=== PATIENT | male | born 1965 | race Caucasian/White ===

== ENCOUNTER 2018-01-09 14:52 | Emergency (ER) | payer OTHER ==
[2018-01-09 15:05] VITALS: RESP 16; TEMP 97.7
--- NOTE | 2018-01-09 15:13 | EDPHY ---
H & P Stated Complaint: Positional vertigo ~5days;started vomiting this morning Time Seen by Provider: 01/09/18 15:12 - Personal History Current Tetanus Diphtheria and Acellular Pertussis (TDAP): Yes - Medical/Surgical History Hx Asthma: No Hx Chronic Respiratory Disease: No Hx Diabetes: No Hx Cardiac Disease: No Hx Renal Disease: No Hx Cirrhosis: No Hx Alcoholism: No Hx HIV/AIDS: No Hx Splenectomy or Spleen Trauma: No Other PMH: achilles tendon rupture - Social History Smoking Status: Never smoked Constitutional: Initial Vital Signs Temperature (C) 36.5 C 01/09/18 14:59 Heart Rate 52 L 01/09/18 14:59 Respiratory Rate 16 01/09/18 14:59 Blood Pressure 107/75 01/09/18 14:59 O2 Sat (%) 100 01/09/18 14:59 O2 Delivery Mode Room Air O2 (L/minute) 2 Allergies/Adverse Reactions: No Known Allergies Allergy (Verified 01/09/18 14:59) Home Medications: Medication Instructions Recorded NK [No Known Home Meds] 02/20/16 Medical Decision Making - Diagnostics Imaging Results: Imaging Impressions Brain MRI 01/09/18 15:38 Impression: Normal MRI of the brain without contrast. Findings and recommendations discussed with Emergency Department physician, Davon Helton MD at 1635 hour, 01/09/2018. Final report concurs with initial preliminary interpretation. Imaging: Discussed imaging studies w/ call center agent Radiologist ED Course/Re-evaluation: CHIEF COMPLAINT: Vertigo HISTORY OF PRESENT ILLNESS: Healthy 52 y/o male presents with vertigo onset this morning. For the past 5 days, he has had 1-2 episodes of lightheadedness per day, each lasting about 30 seconds. Today, he woke feeling dizzy and lightheaded. He sat down and immediately developed a room-spinning sensation. He vomited after this, and continues to vomit and feel nauseous. Sitting still with eyes closed relieves his symptoms somewhat. He spoke with his primary care provider, who recommended he present to the emergency department for evaluation. He had not had similar symptoms in the past. No headache, numbness or weakness in his extremities, confusion, difficulty speaking, or other associated symptoms. He denies recent trauma or illness. REVIEW OF SYSTEMS: A 10 point review of systems was performed and is negative with the exception of the elements mentioned in the history of present illness. PHYSICAL EXAM: HR, BP, O2 Sat, RR. Temp noted General Appearance: Alert, well hydrated, appropriate, and non-toxic appearing. Head: Atraumatic without scalp tenderness or obvious injury Eyes: Pupils equal, round, reactive to light and accommodation, EOMI, no trauma , no injection. Ears: Clear bilaterally, no perforation, normal landmarks Nose: Atraumatic, no rhinorrhea, clear. Throat: There is no erythema or exudates, no lesions, normal tonsils, mucus membranes moist. Neck: Supple, 2+ carotid upstroke, nontender, no lymphadenopathy. Respiratory: No retractions, no distress, no wheezes, and no accessory muscle use. Lungs are clear to auscultation bilaterally. Cardiovascular: Regular rate and rhythm, no murmurs, rubs, or gallops. Bilateral carotid, radial, dorsalis pedis, and posterior tibial pulses intact. Good capillary refill all extremities. Gastrointestinal: Abdomen is soft, nontender, non-distended, no masses, no rebound, no guarding, no peritoneal signs. Musculoskeletal: Normal active ROM of all extremities, atraumatic. Neurological: Alert, appropriate, and interactive. The patient has normal DTRs and non-focal cranial nerves, motor, sensory, and cerebellar exam. Skin: No rashes, good turgor, no nodules on palpation. Past medical history: Achilles tendon rupture Past surgical history: Noncontributory Family history: Noncontributory Social history: . at bedside. Lives in [place]. DIFFERENTIAL DIAGNOSIS: The differential diagnosis for the patient's dizziness included but was not limited to peripheral and central causes of vertigo, orthostatic causes including dehydration, cardiogenic and neurogenic causes, and blood loss. MEDICAL DECISION MAKIN52 y/o male presents with vertigo onset this morning. He had several prodromal episodes of lightheadedness in the last week. The patient has severe nausea with room spinning. His symptoms extinguish when he is supine and closes his eyes. Symptoms consistent with BPPV rather than central processes. Plan for MRI to r/o acute processes. Plan to administer 25mg IV Benadryl, 1mg IV Ativan, 4mg IV Zofran for symptom relief. 16:30 Patient is feeling much better following medication administration. 16:[address] An, radiologist. MRI brain negative for acute processes. 17:00 Reassessed patient. He continues to feel well. Plan to discharge home in good condition. He will take meclizine for symptom relief and follow up with ENT for further evaluation. He is comfortable with this plan. - Data Points Medications Given: Discontinued Medications Diphenhydramine HCl (Benadryl Injection) 50 mg IVP EDNOW ONE Stop: 01/09/18 15:40 Last Admin: 01/09/18 15:41 Dose: Not Given Diphenhydramine HCl (Benadryl Injection) 25 mg IVP EDNOW ONE Stop: 01/09/18 15:39 Last Admin: 01/09/18 15:41 Dose: 25 mg Lorazepam (Ativan Injection) 1 mg IVP EDNOW ONE Stop: 01/09/18 15:39 Last Admin: 01/09/18 15:40 Dose: 1 mg Lorazepam (Ativan Injection) 1 mg IVP EDNOW ONE Stop: 01/09/18 15:39 Last Admin: 01/09/18 15:40 Dose: Not Given Ondansetron HCl (Zofran) 4 mg IVP EDNOW ONE Stop: 01/09/18 15:39 Last Admin: 01/09/18 15:47 Dose: 4 mg Departure - Departure Disposition: Home, Routine, Self-Care Clinical Impression: BPPV (benign paroxysmal positional vertigo) Qualifiers: Laterality: unspecified laterality Qualified Code(s): H81.10 - Benign paroxysmal vertigo, unspecified ear Condition: Good Instructions: Benign Paroxysmal Positional Vertigo (ED) Additional Instructions: 1. Follow up with an Ear, Nose, and Throat provider for further evaluation of your vertigo. 2. Take Meclizine, available over the counter, as needed for recurrent symptoms. Stay well hydrated. 3. Return to the emergency department immediately for headache, numbness, weakness, severe vertigo, neck pain, inability to tolerate fluids by mouth or other worsening of condition. Referrals: Fred Guillen MD [Primary Care Provider] - As per Instructions Argentina Nicolas PA [Physician Telecom Sales Consultant] - As per Instructions Report Scribed for: Davon Helton Report Scribed by: Deyanira Correa Date of Report: 01/09/18 Time of Report: 17:00
[2018-01-09] MEDS ORDERED: LORazepam 2 MG/ML INJ ONE (15:37)
[2018-01-09] MEDS ORDERED: ONDANSETRON 4 MG/2 ML VIAL IVP ONE (15:38)
[2018-01-09] MEDS ORDERED: LORazepam 2 MG/ML INJ IVP ONE ×2 (15:38)
[2018-01-09 17:42] VITALS: BP 111/71; PULSE 62; O2SAT 98
== END 2018-01-09 18:03 | disposition home or self-care (01) ==
DX: H81.10 Benign paroxysmal vertigo, unspecified ear (principal)
CPT/HCPCS: 96374; J1200; J2060; J2405